=== PATIENT | male | born 1980 | race Caucasian/White ===

== ENCOUNTER 2016-06-30 02:10 | Emergency (ER) | payer SELFPAY ==
[2016-06-30] MEDS ORDERED: Lidocaine 1% 10 MG/ML - 20 ML VIAL SUBCUT ONE (02:24)
[2016-06-30] MEDS ORDERED: Lidocaine Inj 1% 20 ML ONE (02:26)
[2016-06-30 04:26] VITALS: RESP 18; TEMP 97.7
--- NOTE | 2016-06-30 05:28 | PDOC ---
Facial / Scalp Injury HPI - General Chief Complaint: Laceration / Wound Stated Complaint: Posterior Head Laceration Date Seen by Provider: 06/30/16 Time Seen by Provider: 02:20 Source: POSITIVE: Patient Exam Limitations: POSITIVE: No limitations Nurse's Notes Reviewed & Considered: Yes - History of Present Illness Initial Comments: The patient is a 36-year-old male. Approximately 30 minutes [employer] he stumbled and fell backward and struck the occipital parietal area of his scalp on a hose clamp, sustaining an approximately 2 inch laceration here. Patient had no loss of consciousness. He denies any headache. No visual or ENT symptoms. No sensory or motor complaints. No nausea or vomiting. No neck pain. Have you received a tetanus shot in the past 10 years?: Unknown Body Location Affected: REPORTS: Head Timing: REPORTS: Abrupt Duration: 1 hour Severity: Moderate Quality: REPORTS: "Pain" (Mild local scalp pain) Location at Time of Onset: REPORTS: Home Context of Injury: REPORTS: Fall, Direct Blow Associated Symptoms: REPORTS: Recalls Injury, Recalls Coming to ER, Blow to Head. DENIES: Dazed, Seizure, Trouble Breathing, Memory Impairment, Lost Consciousness, Other Duration of Impaired Consciousness (in minutes):: 0 Any Prior Injuries Related to Current Complaint?: No - Patient Home Medications Home Medications: Home Medications NK [No Home Medications Reported] 04/26/14 - Patient Allergies Allergies/Adverse Reactions: Allergies Allergy/AdvReac Type Severity Reaction Status Date / Time No Known Allergies Allergy Verified 06/30/16 02:19 Past Medical History - heen HEENT History: Denies History Cardiovascular History: Denies History Respiratory History: Asthma, Other (please comment) Additional Respiratory History: ASTHMA A CHILD (RESOLVED) Gastrointestinal History: Denies History Genitourinary History: Denies History Endocrine History: Denies History Musculoskeletal History: Denies History Prosthesis or Implant: No Neurological History: Denies History Blood Disorders: Denies History Psychiatric History: Denies History Cancer History: Denies History In Past Year Been Physically Harmed or Verbally Threatened: No History of MDRO: No Tobacco Use: Never Smoker Alcohol Use: Occasionally Type of alcohol normally used: Beer Substance Use Type: None Previous Surgical History: No Significant Family History: No pertinent family hx Past Medical History Reviewed: Reviewed - No Changes ROS - Limitations ROS Limitations: No Limitations Constitution: REPORTS: Denies Symptoms Cardiovascular: REPORTS: Denies Cardiac Symptoms Respiratory: REPORTS: Denies Resp Symptoms Neurological: REPORTS: Denies Neuro Symptoms Gastrointestinal: REPORTS: Denies GI Symptoms Endocrine: REPORTS: Denies Symptoms Musculoskeletal: REPORTS: Denies MS Symptoms Genitourinary: REPORTS: Denies Symptoms Eyes: REPORTS: Denies Symptoms ENT: REPORTS: Denies Symptoms Skin: REPORTS: Other (Laceration occipital parietal area of the scalp as above; see diagram) Lympathic: REPORTS: Denies Lympathic Symptoms Immunologic: POSITIVE: Denies Symptoms Psychiatric: POSITIVE: Denies Psych Symptoms Facial Exam - General Appearance General Appearance: POSITIVE: Alert, Cooperative, No Acute Distress. NEGATIVE: No Evidence of Trauma (Scalp laceration as above; see diagram) - HEENT Head / Face: POSITIVE: No Facial Swelling. NEGATIVE: Atraumatic (Scalp laceration as above diagram), Normal Inspection Eyes: POSITIVE: Inspection Normal, PERRL, EOM's Intact, Eyelids Uninjured, Conjunctivae Uninjured, No Nystagmus, No Globe Trauma, Sclera Normal, Normal Corneal Inspection, Normal Fundoscopic Exam, No Papilledema Ears: POSITIVE: Ears Normal Inspection, TM Normal Inspection, Auricle Normal, External Canal Normal Nose: POSITIVE: Inspection Normal, No Apparent Trauma, Nares Normal, No CSF Leak Oropharynx: POSITIVE: External Inspection Nml, Pharynx Inspect. 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, Motor Normal, Sensation Normal, Mood Appropriate, Affect Appropriate - Respiratory / CVS Respiratory / CVS: POSITIVE: Chest Non Tender, No Ecchymosis, Breath Sounds Normal, No Respiratory Distress, Heart Sounds Normal, Regular Rate/Rhythm Peripheral Pulses: Radial (R): 2+, Radial (L): 2+ - Abdomen Abdomen: Soft: (All Quadrants), Normal Bowel Sounds: (All Quadrants), Denies Tenderness: (All Quadrants), No Splenomegaly: (All Quadrants), No Hepatomegaly: (All Quadrants), No Guarding: (All Quadrants), No Rebound: (All Quadrants), No Palpable Pulse: (All Quadrants), No Palpabale Mass: (All Quadrants), No Distention: (All Quadrants), No Rigidity: (All Quadrants) - Extremities Extremity: Non-Tender: (All Extremities), Normal ROM: (All Extremities), Normal Inspection: (All Extremities) - Skin Skin: NEGATIVE: Intact (Laceration occipital parietal area; see diagram) Images - Head Head: 1 - 2 inch calp laceration Procedures - Laceration/Wound Repair Did patient have a laceration repair: Yes Site of Laceration/Wound: Posterior scalp Wound Length (cm): 5 Wound's Depth, Shape: Into subcutaneous tissue, Irregular Time of Suture Placement:: 02:26 Distal CMS: Yes Skin Prep: Sterile Field Maintained, Sterile Drapes Applied, Shur-Clens, Other ( Saline) Local Anesthesia Used - Indicate Amt Used in Comment: Lidocaine 1%: Yes Irrigated w/ Saline (mL): 20 Wound Explored: No foreign body removed Wound Debrided: Minimal Wound Repaired With: Sutures single layer Suture Size/Type: 4:0 Number of Sutures: 5 Layer Closure?: No Drain Placement: No Sterile Dressing Applied?: No Procedure Note:: After local anesthesia with 1% lidocaine the wound was sterilely and copiously irrigated with normal saline and explored. Wound was then closed with five 4-0 simple interrupted sutures. Facial / Scalp Injury Progress - Patient's Progress Pain Medication Addressed: POSITIVE: Yes (Recommended Advil or Tylenol) School/Work Release Addressed: POSITIVE: Not Applicable Re-Examine Time: 02:45 Re-Examine Comment: Primary closure complete Status: POSITIVE: Improved, Re-Examined (Wound repaired with sutures) - Consult Counseled: POSITIVE: Patient, RE: DX, RE: Need for F/U Patient Care Time - Estimated PCT Patient Care Time (In Minutes): 25 Vital Signs - Recent Vital Signs Vital Signs: Vital Signs (Last 8 hours) Temp Pulse Resp BP Pulse Ox 06/30/16 02:10 97.7 F 90 18 142/89 98 - VS Reviewed Vital Signs Reviewed: Yes Discharge Clinical Impression: Laceration - injury Discharge Disposition: Discharged to Home Condition: Stable Patient Instructions Given at Discharge: Laceration (ED) Additional Instructions: Keep sutures clean. Return in 10 days for suture removal. Return sooner at first sign of infection, or if condition worsens in any way. Follow Up With: NONE,NONE [Primary Care Provider] - (Suture removal in 10 days. Return anytime if condition worsens. Keep sutures clean.)
== END 2016-06-30 02:50 | disposition home or self-care (01) ==
LOC: ER 02:10
DX: S01.01XA Laceration without foreign body of scalp, initial encounter (principal); W01.198A Fall on same level from slipping, tripping and stumbling with subsequent striking against other object, initial encounter
CPT/HCPCS: 12002; 99282; J2001